=== PATIENT | female | born 1955 | race Caucasian/White ===

== ENCOUNTER 2016-12-08 16:18 | Emergency (ER) | payer OTHER ==
--- NOTE | 2016-12-08 16:41 | ED Physician Documentation ---
PD HPI URI - Stated complaint Stated Complaint: SOA - Chief complaint Chief Complaint: Heent - History obtained from History obtained from: Patient - History of Present Illness Timing - onset: How many days ago (2-3) Timing duration: Days Timing details: Gradual onset, Still present (worse today) Associated symptoms: Chills, Sweats, Nasal congestion, Sore throat, Dry cough, Dyspnea. No: Hemoptysis, NVD, Bilateral edema Contributing factors: COPD / asthma. No: Sick contact, Travel, Immunocompromised Worsened by: Activity, Breathing Recently seen: Not recently seen Review of Systems Constitutional: reports: Chills, Myalgias, Fatigue Nose: reports: Congestion Throat: reports: Sore throat Cardiac: denies: Chest pain / pressure Respiratory: reports: Cough, Wheezing GI: reports: Nausea. denies: Vomiting, Diarrhea : denies: Dysuria, Frequency Skin: denies: Rash, Lesions PD PAST MEDICAL HISTORY - Past Medical History Cardiovascular: Hypertension Respiratory: None Neuro: None Endocrine/Autoimmune: None GI: GERD A/C TECH: None : None HEENT: None Psych: None Musculoskeletal: None Derm: None - Past Surgical History Past Surgical History: Yes General: Cholecystectomy, Appendectomy /A/C TECH: Hysterectomy, Oophrectomy HEENT: Tonsil/Adenoidectomy, Other - Present Medications Home Medications: Ambulatory Orders Medication Instructions Recorded Confirmed Lisinopril 10 mg PO DAILY 07/16/16 12/08/16 Clindamycin [Cleocin] 300 mg PO TID 12/08/16 12/08/16 Dexamethasone [Decadron] 4 mg PO DAILY #5 tablet 12/08/16 Fexofenadine HCl 180 mg PO DAILY 12/08/16 12/08/16 Fluticasone Propionate [Flovent 50 mcg PO DAILY 12/08/16 12/08/16 Diskus] Metoprolol Tartrate 100 mg PO DAILY 12/08/16 12/08/16 guaiFENesin/CODEINE [Robitussin AC] 10 ml PO Q6H PRN #240 ml 12/08/16 - Allergies Allergies/Adverse Reactions: Allergies Allergy/AdvReac Type Severity Reaction Status Date / Time eszopiclone [From Lunesta] Allergy Unknown Unknown Verified 08/28/15 21:38 diphenhydramine HCl * AdvReac Severe Respiratory Verified 08/28/15 21:37 [From Benadryl] - Social History Does the pt smoke?: No Smoking Status: Former smoker Does the pt drink ETOH?: No Does the pt have substance abuse?: No - Immunizations Immunizations are current?: Yes - POLST Patient has POLST: No PD ED PE NORMAL - Vitals Vital signs reviewed: Yes - General General: Alert and oriented X 3, No acute distress, Well developed/nourished, Other (hoarse voice) - HEENT HEENT: Ears normal, Moist mucous membranes, Pharynx benign - Neck Neck: Supple, no meningeal sign, No adenopathy - Cardiac Cardiac: RRR, No murmur - Respiratory Respiratory: Other (some scattered wheezing noted. ) - Abdomen Abdomen: Soft, Non tender - Derm Derm: Normal color, Warm and dry - Neuro Neuro: No motor deficit, No sensory deficit Results - Vitals Vitals: Oxygen O2 Source Room air PD MEDICAL DECISION MAKING - ED course Complexity details: considered differential (does not sound pneumonic, seems URI with wheezing. ), d/w patient Departure - Departure Disposition: Home, Self Care Clinical Impression: Upper respiratory infection Qualifiers: URI type: unspecified URI Qualified Code(s): J06.9 - Acute upper respiratory infection, unspecified Condition: Stable Instructions: ED URI Viral W Wheezing Follow-Up: Praveena Andrade ARNP [Primary Care Provider] - Prescriptions: Dexamethasone [Decadron] 4 mg PO DAILY #5 tablet guaiFENesin/CODEINE [Robitussin AC] 10 ml PO Q6H PRN #240 ml PRN Reason: Cough Comments: Use the Albuterol inhaler 2 puffs 4 times daily for 7-10 days and extra as needed for persistent cough/wheezing. Decadron daily for 5 days to reduce inflammation. Cough medication as needed. Should decrease symptoms over several days, recheck if worsening. Discharge Date/Time: 12/08/16 18:13
[2016-12-08] MEDS ORDERED: DEXAMETHASONE 10 MG/ML VIAL PO STA (17:10)
[2016-12-08] MEDS ORDERED: guaiFENesin/CODEINE 5 ML UDC PO STA (17:10)
[2016-12-08] MEDS ORDERED: BENZONATATE 100 MG CAPSULE PO STA (17:10)
[2016-12-08] MEDS ORDERED: ALBUTEROL 8 GM INHALER INH STA (17:10)
[2016-12-08] MEDS ORDERED: DEXAMETHASONE 10 MG/ML VIAL ONE (17:15)
[2016-12-08] MEDS ORDERED: BENZONATATE 100 MG CAPSULE PO ONE (17:15)
[2016-12-08] MEDS ORDERED: CHERRY SYRUP 10 ML UDC PO ONE (17:15)
[2016-12-08] MEDS ORDERED: guaiFENesin/CODEINE 5 ML UDC ONE (17:15)
[2016-12-08] MEDS ORDERED: ALBUTEROL 18 GM INHALER INH ONE (17:19)
[2016-12-08] MEDS ORDERED: ONDANSETRON ODT 4 MG TABLET ONE (17:21)
[2016-12-08] MEDS ORDERED: ONDANSETRON ODT 4 MG TABLET TL STA (17:24)
[2016-12-08 18:14] VITALS: BP 149/83
== END 2016-12-08 18:13 | disposition home or self-care (01) ==
LOC: ED 16:18
DX: J06.9 Acute upper respiratory infection, unspecified (principal); I10 Essential (primary) hypertension; K21.9 Gastro-esophageal reflux disease without esophagitis; Z87.891 Personal history of nicotine dependence
CPT/HCPCS: 94640; 94664; 99283; A9270; Q0162